=== PATIENT | male | born 1945 | race Caucasian/White ===

== ENCOUNTER 2020-11-24 17:24 | Inpatient (IN) | payer MEDICARE, BC ==
[~2020-11-24] VITALS: Ht 182.9 cm; Wt 77.7 kg
[~2020-11-24 17:24] MED LIST: ARTIFICIAL TEAR15 ML EACH EYE; BAYER CHEWABLE81 MG PO; COLACE100 MG PO; CYMBALTA30 MG PO; FERROUS SULFAT325 MG PO; FISH OIL 1,0001 CA1 PO; FLOMAX0.4 MG PO; GLUCOSAMINE & C1 CAP PO; HUMULIN N100 U/ML SC; HYDRALAZINE HCL25 MG PO; IMDUR60 MG PO; LASIX20 MG PO; LIPITOR40 MG PO; MULTI-DAY VITAM1 TAB PO; NORVASC10 MG PO; PLAVIX75 MG PO; REFRESH TEARS15 ML EACH EYE; SPORANOX100 MG PO; SYNTHROID50 MCG PO; TOPROL XL100 MG PO; TRANXENE3.75 MG PO; VITAMIN B-121000 MCG PO; VITAMIN D5000 UNIT PO; WELLBUTRIN SR150 MG PO; ZYLOPRIM100 MG PO
[2020-11-24] MEDS ORDERED: BUMEX2 MG PO (17:38)
[2020-11-24] MEDS ORDERED: FAMOTIDINE10 MG PO (17:39)
[2020-11-24] MEDS ORDERED: PROTONIX40 MG PO (17:44)
[2020-11-24] MEDS ORDERED: FLORASTOR250 MG PO (17:44)
[2020-11-24] MEDS ORDERED: LOKELMA5 GM PO (17:45)
[2020-11-24] MEDS ORDERED: PACERONE200 MG PO (17:45)
[2020-11-24] MEDS ORDERED: ZOLOFT25 MG PO (17:45)
[2020-11-24] MEDS ORDERED: LOMOTIL 2.5-0.1 EAC1 PO (17:46)
[2020-11-24] MEDS ORDERED: ELIQUIS5 MG PO (17:46)
[2020-11-24] MEDS ORDERED: COREG 3.1253.125 MG PO (17:46)
[2020-11-24] MEDS ORDERED: BENTYL10 MG PO (17:46)
[2020-11-24] MEDS ORDERED: DOXYCYCLINE HY100 M2 PO (17:47)
[2020-11-24] MEDS ORDERED: PERCOCET 5-3251 TAB PO (17:48)
[2020-11-24] MEDS ORDERED: LYRICA25 MG PO (17:48)
[2020-11-24 17:59] VITALS: Ht 182.9 cm; Wt 77.7 kg
--- NOTE | 2020-11-24 19:25 | NUR ---
Pt to dialysis in no acute distress.
--- NOTE | 2020-11-24 23:40 | NUR ---
Pt back from dialysis. He reports feeling "much better". at bedside. Pt in no apparent distress. Verbalizes understanding for current admission plans.
[2020-11-24 23:46] VITALS: BP 146/73
--- NOTE | 2020-11-25 00:40 | NUR ---
Report to Oralia JOY.
--- NOTE | 2020-11-25 01:32 | NUR ---
PATIENT UP TO BS COMMODE WITH ASSIST X 2 FOR BM. STATES HE IS ALOT STRONGER AND STEADIER SINCE HE HAD DIALYSIS
[2020-11-25 03:17] VITALS: BP 138/76
[2020-11-25 05:51] LABS: BASOPHILS 0 % (0-2); EOSINOPHILS 12.5 % (0-7); HEMATOCRIT 29.8 % (42.0-54.0); HEMOGLOBIN 9.8 g/dL (13.5-17.5); LYMPHOCYTES 12.5 % (15-50); MCH 31.9 pg (26.0-34.0); MCHC 32.8 g/dL (31.0-37.0); MCV 97.3 fL (80.0-100.0); MEAN PLATELET VOLUME 9.4 fL (7.4-10.4); MONOCYTES 0 % (2-11); RBC 3.06 10x6/uL (4.20-6.10); RDW 16.9 % (11.5-14.5); WBC 5.6 10x3/uL (4.8-10.8)
[2020-11-25 05:55] LABS: PLATELET COUNT 79 10x3/uL (130-400); PLATELET ESTIMATE DECREASED
[2020-11-25 06:00] LABS: ALBUMIN 2.2 g/dL (3.4-5.0); ANION GAP 12.8 mmol/L (8-16); BILIRUBIN - TOTAL 0.5 mg/dL (0.2-1.3); CALCIUM 7.4 mg/dL (8.5-10.1); CARBON DIOXIDE 26.8 mmol/L (21.0-32.0); CREATININE - SERUM 6.5 mg/dL (0.6-1.3); MAGNESIUM - SERUM 1.4 mg/dL (1.8-2.4); PHOSPHOROUS 5.4 mg/dL (2.5-4.9); POTASSIUM - SERUM 4.6 mmol/L (3.5-5.1); PROTEIN - SERUM 5.5 g/dL (6.4-8.2)
[2020-11-25 10:35] VITALS: BP 133/68
--- NOTE | 2020-11-27 18:04 | MORECARE ---
CASE MANAGEMENT DISCHARGE SUMMARY PATIENT: NEGRO HOBBS UNIT: [id number] ADM DATE: 11/24/20 AGE: 75 : 49 SEX: M ROOM/BED: D.E12 AUTHOR: JUAN,DOC PHYSICIAN: REFERRING PHYSICIAN: DENZEL TURCIOS MD DATE OF SERVICE: 11/27/20 Case Management Discharge Planning Summary DCP REVIEW SUMMARY ANTICIPATED D/C DATE: EXPECTED LOS : CASE STATUS: DCP Not started INITIAL REVIEW: 11/24/2020 INITIAL REVIEWER: Lety Quevedo FINAL DISCHARGE DISPOSITION: : FINAL REVIEWER: FINAL REVIEW DATE: DCP [employer] QUESTION: ANSWER : PATIENT: NEGRO HOBBS ENCOUNTER: [id number] MEDICAL RECORD#: [id number] ADMISSION DATE: 11/24/2020 DISCHARGE DATE: 11/25/2020 ATTENDING MD: DENZEL ROBERTS : AGE: 75 MARITAL STATUS: M DC PLAN ID: [id number] FACILITY: [facility] PRINTED ON: 11/27/20 18:04 CT All edits/amendments must be made on the electronic document DICTATION DATE: 11/27/201803 MERCHANDISING CONSULTANT: DM 11/27/20 180 RPT#: [id number] DC DATE:11/25/20 STATUS: DIS IN [facility] [address] [place] [address] END OF REPORT
== END 2020-11-25 13:19 | disposition home or self-care (01) | DRG 640 ==
LOC: D.ER 17:24 → D.EDHOLD 17:36
PROVIDERS: ADMIT Internal Medicine Nephrology; ATTEND Internal Medicine Nephrology
DX: E87.5 Hyperkalemia (principal); N18.6 End stage renal disease; I12.0 Hypertensive chronic kidney disease with stage 5 chronic kidney disease or end stage renal disease; E11.22 Type 2 diabetes mellitus with diabetic chronic kidney disease; Z99.2 Dependence on renal dialysis